=== PATIENT | male | born 1980 | race Caucasian/White ===

== ENCOUNTER 2018-07-20 08:28 | Emergency (ER) | payer OTHER ==
[2018-07-20 08:34] VITALS: RESP 18; TEMP 98.2
[2018-07-20] MEDS ORDERED: MORPHINE SULFATE 4 MG/ML SYRINGE IV STA (08:55)
[2018-07-20] MEDS ORDERED: ONDANSETRON 4 MG/2 ML VIAL IVP STA (08:55)
[2018-07-20] MEDS ORDERED: SODIUM CHLORIDE 0.9% 1,000 ML IV STA (08:55)
--- NOTE | 2018-07-20 09:01 | ED ---
General Adult HPI - General Chief complaint: Abdominal Pain Stated complaint: Infection in stomach Time Seen by Provider: 07/20/18 08:42 Source: patient, RN notes reviewed Mode of arrival: wheelchair Limitations: no limitations - History of Present Illness Initial comments: Patient's a 38-year-old male with no significant past medical history, presented to the emergency room today with a chief complaint of infection around the bellybutton. Patient states that he's had some pain in this area for the past 3 days. States went toPatient denies any recent fever, chills, shortness of breath, chest pain, back pain, abdominal pain, nausea or vomiting, numbness or tingling, dysuria or hematuria, constipation or diarrhea, headaches or visual changes, or any other complaints. urgent care and they told him it could be a hernia and to follow-up family physician today. Patient states that today pain was worse and over some drainage coming from the bellybutton. Patient does admit to pain worse with certain movements. Patient denies any other complaints or symptoms. Patient denies any recent fever, chills, shortness of breath, chest pain, back pain, numbness or tingling, dysuria or hematuria, constipation or diarrhea, headaches or visual changes, or any other complaints. - Related Data Previous Rx's Medication Instructions Recorded Mupirocin 2% Oint [Bactroban Oint] 1 applic TOPICAL TID #1 gm 07/20/18 Sulfamethox-Tmp 800-160Mg [Bactrim 1 tab PO Q12HR #20 tab 07/20/18 DS 800-160 mg] Allergies Allergy/AdvReac Type Severity Reaction Status Date / Time bismuth subsalicylate AdvReac Nausea & Verified 07/20/18 09:11 [From Pepto-Bismol] Vomiting Review of Systems ROS Statement: Those systems with pertinent positive or pertinent negative responses have been documented in the HPI. ROS Other: All systems not noted in ROS Statement are negative. Past Medical History Past Medical History: No Reported History History of Any Multi-Drug Resistant Organisms: None Reported Past Surgical History: Orthopedic Surgery Past Psychological History: Anxiety Smoking Status: Never smoker Past Alcohol Use History: None Reported Past Drug Use History: Marijuana General Exam - General Exam Comments Initial Comments: General: The patient is awake and alert, in no distress, and does not appear acutely ill. Eye: Pupils are equal, round and reactive to light. Extra-ocular movements are intact. No nystagmus. There is normal conjunctiva bilaterally. No signs of icterus. Ears, nose, mouth and throat: There are moist mucous membranes and no oral lesions. Neck: The neck is supple, there is no tenderness or JVD. Cardiovascular: There is a regular rate and rhythm. No murmur, rub or gallop is appreciated. Respiratory: Lungs are clear to auscultation, respirations are non-labored, breath sounds are equal. No wheezes, stridor, rales, or rhonchi. Gastrointestinal: Patient does have tenderness periumbilical. There is white drainage coming from belly button. Small red area down into the belly button measuring approximately half centimeter in size possible abscessed area. No rebound, guarding or CVA tenderness. Musculoskeletal: Normal ROM, no tenderness. Sensation intact. Strength 5/5. Pulses equal bilaterally 2+. Neurological: A&O x 3. CN II-XII intact, There are no obvious motor or sensory deficits. Coordination appears grossly intact. Speech is normal. Skin: Dominant patient's belly button there is a small red area approximately half size where there is some purulent drainage coming from. Psychiatric: Cooperative, appropriate mood & affect, normal judgment. Limitations: no limitations Course Vital Signs 07/20/18 08:30 Temperature 98.2 F Pulse Rate 85 Respiratory 18 Rate Blood Pressure 122/76 O2 Sat by Pulse 97 Oximetry Medical Decision Making - Medical Decision Making Patient's CT the abdomen and pelvis is negative for any acute abnormality. Does have drainage coming from the bellybutton. There is a small abscess visualized. Patient's labs reviewed unremarkable. Patient's her on antibiotics to emergency room. Advised follow-up family doctor next 2 days. - Lab Data Result diagrams: 07/20/18 09:01 07/20/18 09:01 Lab Results 07/20/18 07/20/18 07/20/18 Range/Units 09:01 09:01 09:01 WBC 6.9 (3.8-10.6) k/uL RBC 4.99 (4.30-5.90) m/uL Hgb 14.9 (13.0-17.5) gm/dL Hct 44.6 (39.0-53.0) % MCV 89.5 (80.0-100.0) fL MCH 29.9 (25.0-35.0) pg MCHC 33.4 (31.0-37.0) g/dL RDW 13.1 (11.5-15.5) % Plt Count 193 (150-450) k/uL Neutrophils % 67 % Lymphocytes % 23 % Monocytes % 6 % Eosinophils % 2 % Basophils % 0 % Neutrophils # 4.6 (1.3-7.7) k/uL Lymphocytes # 1.6 (1.0-4.8) k/uL Monocytes # 0.4 (0-1.0) k/uL Eosinophils # 0.2 (0-0.7) k/uL Basophils # 0.0 (0-0.2) k/uL Sodium 141 (137-145) mmol/L Potassium 4.6 (3.5-5.1) mmol/L Chloride 109 H (98-107) mmol/L Carbon Dioxide 25 (22-30) mmol/L Anion Gap 7 mmol/L BUN 11 (9-20) mg/dL Creatinine 0.95 (0.66-1.25) mg/dL Est GFR (CKD-EPI)AfAm >90 (>60 ml/min/1.73 sqM) Est GFR (CKD-EPI)NonAf >90 (>60 ml/min/1.73 sqM) Glucose 100 H (74-99) mg/dL Plasma Lactic Acid Romel 1.3 (0.7-2.0) mmol/L Calcium 10.6 H (8.4-10.2) mg/dL Total Bilirubin 0.5 (0.2-1.3) mg/dL AST 17 (17-59) U/L ALT 14 L (21-72) U/L Alkaline Phosphatase 51 (38-126) U/L Total Protein 7.1 (6.3-8.2) g/dL Albumin 4.2 (3.5-5.0) g/dL Disposition Clinical Impression: Abdominal wall abscess Disposition: HOME SELF-CARE Condition: Good Instructions: Abscess (ED) Additional Instructions: Please use medication as discussed. Please follow-up with family doctor in the next 2 days of symptoms have not improved. Please return to emergency room if the symptoms increase or worsen or for any other concerns. Prescriptions: Mupirocin 2% Oint [Bactroban Oint] 1 applic TOPICAL TID #1 gm Sulfamethox-Tmp 800-160Mg [Bactrim DS 800-160 mg] 1 tab PO Q12HR #20 tab Is patient prescribed a controlled substance at d/c from ED?: No Referrals: Florentin León MD [Primary Care Provider] - 1-2 days Time of Disposition: 10:43
[2018-07-20 09:37] LABS: Basophils % (A) 0 %; Eosinophils # (A) 0.2 k/uL (0-0.7); Eosinophils % (A) 2 %; HCT 44.6 % (39.0-53.0); HGB 14.9 gm/dL (13.0-17.5); Lymphocytes # (A) 1.6 k/uL (1.0-4.8); Lymphocytes % (A) 23 %; MCH 29.9 pg (25.0-35.0); MCHC 33.4 g/dL (31.0-37.0); MCV 89.5 fL (80.0-100.0); Mean Platelet Volume 6.4; Monocytes # (A) 0.4 k/uL (0-1.0); Monocytes % (A) 6 %; Neutrophils # (A) 4.6 k/uL (1.3-7.7); Neutrophils % (A) 67 %; Platelet Count 193 k/uL (150-450); RBC 4.99 m/uL (4.30-5.90); RDW 13.1 % (11.5-15.5); WBC 6.9 k/uL (3.8-10.6)
[2018-07-20 09:55] LABS: ALT 14 U/L (21-72); AST 17 U/L (17-59); Albumin 4.2 g/dL (3.5-5.0); Alkaline Phosphatase 51 U/L (38-126); Anion Gap 7 mmol/L; Blood Urea Nitrogen 11 mg/dL (9-20); Calcium 10.6 mg/dL (8.4-10.2); Carbon Dioxide 25 mmol/L (22-30); Chloride 109 mmol/L (98-107); Glucose 100 mg/dL (74-99); Potassium 4.6 mmol/L (3.5-5.1); Sodium 141 mmol/L (137-145); Total Bilirubin 0.5 mg/dL (0.2-1.3); Total Protein 7.1 g/dL (6.3-8.2)
--- NOTE | 2018-07-20 10:11 | CT ---
EXAMINATION TYPE: CT abdomen pelvis w con DATE OF EXAM: 07/20/2018 COMPARISON: none HISTORY: Stomach pains CT DLP: 1428.7 mGycm CONTRAST: CT scan of the abdomen and pelvis is performed without Oral Contrast and with IV Contrast, patient in jected with 100 mL of Isovue 300. FINDINGS: LUNG BASES-: No visible nodule. No infiltrate. LIVER/GB: No calcified gallstones. No space occupying hepatic lesion. Biliary tree is of normal ca liber. PANCREAS: No inflammation. No distinct mass. SPLEEN: No splenic enlargement. No lesion seen. ADRENALS: No nodule. No thickening. KIDNEYS/BLADDER: No hydronephrosis. No nephrolithiasis. No distinct renal mass. Urinary bladder g rossly unremarkable. BOWEL: Normal appendix. Normal bowel caliber. No inflammation. GENITAL ORGANS: No gross abnormality. LYMPH NODES: No greater than 1cm abdominal or pelvic lymph nodes are appreciated. AORTA: No significant abnormality. OSSEOUS STRUCTURES: No significant abnormality is seen. OTHER: No significant additional abnormality is seen. IMPRESSION: 1. No significant abnormality to account for the patient's symptoms.
[2018-07-20 11:22] VITALS: BP 92/57; PULSE 68
== END 2018-07-20 11:17 | disposition home or self-care (01) ==
LOC: EC 08:28
DX: L02.211 Cutaneous abscess of abdominal wall (principal); Z98.890 Other specified postprocedural states; Z88.8 Allergy status to other drugs, medicaments and biological substances
CPT/HCPCS: 36415; 80053; 83605; 85025; 87040; 87070; 87205; 74177; 99284; 96374; 96375; 96361; J2270; J2405; Q9967

== ENCOUNTER 2020-08-06 14:20 | Emergency (ER) | payer BC, OTHER ==
[2020-08-06 14:28] VITALS: BP 125/84; PULSE 89; RESP 118; TEMP 98.2
[2020-08-06] MEDS ORDERED: HYDROcodone/APAP 5-325MG 1 EACH TAB PO STA (14:38)
[2020-08-06] MEDS ORDERED: AMOXIC-POT CLAV 875MG STARTER PACK 2 TAB BTL PO STA (14:38)
[2020-08-06] MEDS ORDERED: DIPH,PERTUS(ACELL)TETVAC-LF 0.5 ML VIAL IM ONE (14:38)
[2020-08-06] MEDS ORDERED: LIDOCAINE 1% INJ 10MG/ML (20 ML MDV) SQ ONE (14:41)
--- NOTE | 2020-08-06 14:44 | ED ---
Animal Bite HPI - General Chief Complaint: Animal Bite Stated Complaint: Dog bite,L hand Time Seen by Provider: 08/06/20 14:31 Source: patient, RN notes reviewed, old records reviewed Mode of arrival: ambulatory Limitations: no limitations - History of Present Illness Initial Comments: Patient is 40-year-old male who presents emergency department today with treatment of a dog bite to the left hand. Patient reports that he was an argument with his and his dog starting between him and he pushed the dog which then reacted to bite his left hand. Patient reports that he has pain tenderness and swelling to the hand. He states that he is right-handed. Patient reports his tetanus shot is up-to-date. He reports that the dog's vaccines are rabies are up-to-date. Patient reports pain with range of motion of the fourth and fifth digits. - Related Data Previous Rx's Medication Instructions Recorded Mupirocin 2% Oint [Bactroban Oint] 1 applic TOPICAL TID #1 gm 07/20/18 Sulfamethox-Tmp 800-160Mg [Bactrim 1 tab PO Q12HR #20 tab 07/20/18 DS 800-160 mg] Amoxic-Pot Clav 875-125Mg 1 tab PO Q12HR #20 tablet 08/06/20 [Augmentin 875-125] Allergies Allergy/AdvReac Type Severity Reaction Status Date / Time bismuth subsalicylate AdvReac Nausea & Verified 08/06/20 14:24 [From Pepto-Bismol] Vomiting Review of Systems ROS Statement: Those systems with pertinent positive or pertinent negative responses have been documented in the HPI. ROS Other: All systems not noted in ROS Statement are negative. Past Medical History Past Medical History: No Reported History Additional Past Medical History / Comment(s): gastritis History of Any Multi-Drug Resistant Organisms: None Reported Past Surgical History: Orthopedic Surgery Past Psychological History: ADD/ADHD, Anxiety Smoking Status: Former smoker Past Alcohol Use History: None Reported Past Drug Use History: Marijuana General Exam - General Exam Comments Initial Comments: 40-year-old male. Alert and oriented 3 Limitations: no limitations General appearance: alert, in no apparent distress Head exam: Present: atraumatic, normocephalic, normal inspection Eye exam: Present: normal appearance, PERRL, EOMI. Absent: scleral icterus, conjunctival injection, periorbital swelling ENT exam: Present: normal exam, mucous membranes moist Neck exam: Present: normal inspection Respiratory exam: Present: normal lung sounds bilaterally. Absent: respiratory distress, wheezes, rales, rhonchi, stridor Cardiovascular Exam: Present: regular rate, normal rhythm, normal heart sounds. Absent: systolic murmur, diastolic murmur, rubs, gallop, clicks GI/Abdominal exam: Present: soft, normal bowel sounds. Absent: distended, tende rness, guarding, rebound, rigid Extremities exam: Present: normal inspection, full ROM, normal capillary refill, other (Patient has a irregular 6 cm flap laceration involving the left hyperthenar eminence puncture wound of the wrist. The). Absent: tenderness, pedal edema, joint swelling, calf tenderness Back exam: Present: normal inspection Neurological exam: Present: alert, oriented X3, CN II-XII intact Psychiatric exam: Present: normal affect, normal mood Skin exam: Present: warm, dry, intact, normal color. Absent: rash Course Vital Signs 08/06/20 14:24 Temperature 98.2 F Pulse Rate 89 Respiratory 118 H Rate Blood Pressure 125/84 O2 Sat by Pulse 100 Oximetry Procedures - Laceration Laceration #1 Size (cm): 8 Description: flap Depth: involves muscle layer Anesthetic Used: lidocaine 1% Anesthesia Technique: local infiltration Amount (mls): 10 Pre-repair: wound explored, irrigated extensively Type of Sutures: nylon Size of Sutures: 5-0 Number of Sutures: 12 Technique: simple, interrupted Patient Tolerated Procedure: well, no complications Medical Decision Making - Medical Decision Making 40-year-old male presents emergency department today for evaluation for a dog bite to the left hand. Patient reports that he was an argument his and the dog got between them and that his left hand. He has irregular laceration over the hyperthenar eminence. Flap laceration measuring 8 cm. X-ray of the hand shows no fracture but evidence of laceration forming. Patient is given updated T DAP and given Augmentin [place] for pain. Patient's laceration was thoroughly irrigated with sterile water and iodine. Patient had 12 sutures loosely approximating the wound. I discussed that a dog bite wound is high white highly likely to become infected and to be diligent about taking antibiotics and wound care. Discussed if he has any redness swelling or drainage to return to the ER for reevaluation. Patient is agreeable to treatment plan will comply. - Radiology Data Radiology results: report reviewed Laceration deformity. No foreign body. No fracture. Disposition Clinical Impression: Dog bite, hand Disposition: HOME SELF-CARE Condition: Good Instructions (If sedation given, give patient instructions): Animal Bite (ED) Additional Instructions: Please return to the emergency room in 8-10 days to have sutures removed. Please leave wound covered for the first 24-48 hours and then leave open to air after that time. Please use clean soap and water to clean the suture area to prevent scabbing over the top of your sutures. Please watch for any signs of infection which may include but not limited to increased pain, swelling, redness, fever or chills. Please return to the emergency room if any signs of infection do occur. Please return to the emergency room for any other concerns or complications. Prescriptions: Amoxic-Pot Clav 875-125Mg [Augmentin 875-125] 1 tab PO Q12HR #20 tablet Is patient prescribed a controlled substance at d/c from ED?: No Referrals: Florentin León MD [Primary Care Provider] - 1-2 days Time of Disposition: 15:53
--- NOTE | 2020-08-06 15:18 | XR ---
EXAMINATION TYPE: XR hand complete LT DATE OF EXAM: 08/06/2020 COMPARISON: NONE HISTORY: Laceration. Pain. Dog bite. TECHNIQUE: 3 views FINDINGS: IMPRESSION: There is laceration deformity at the medial aspect of the hand at the base of the fifth metacarpal. T here is metacarpals are intact. There are no erosions. There are no pathologic calcifications. There is no sign of a foreign body. IMPRESSION: Laceration deformity. No foreign body. No fracture.
[2020-08-06] MEDS ORDERED: LORazepam 2 MG/ML INJ IM STA (15:22)
[2020-08-06] MEDS ORDERED: ACET/COD 300 MG/30 MG STARTER PACK 6 TAB BTL PO STA (15:53)
[2020-08-06] MEDS ORDERED: BACITRACIN OINT 1 EACH PACKET TOPICAL ONE (15:53)
== END 2020-08-06 16:05 | disposition home or self-care (01) ==
LOC: EC 14:20
DX: S61.452A Open bite of left hand, initial encounter (principal); Z23 Encounter for immunization; Z87.891 Personal history of nicotine dependence; Z88.8 Allergy status to other drugs, medicaments and biological substances; W54.0XXA Bitten by dog, initial encounter; Y93.89 Activity, other specified
CPT/HCPCS: 73130; 90715; 99284; 96372; 90471; 12044; J2060; J2001

== ENCOUNTER → 2020-08-24 | Outpatient (CLI) | payer BC, OTHER ==
--- NOTE | 2020-08-29 12:19 | US ---
EXAMINATION TYPE: US abdomen complete DATE OF EXAM: 08/26/2020 COMPARISON: NONE CLINICAL HISTORY: R10.13 Epigastric pain. EXAM MEASUREMENTS: Liver Length: 18.0 cm, liver length may be under represented by measurement obtained Gallbladder Wall: .3 cm CBD: .4 cm Spleen: 13.7 cm Right Kidney: 10.7 x 4.0 x 5.0 cm Left Kidney: 11.7 x 4.7 x 5.2 cm Pancreas: Obscured by bowel gas Liver: Liver echotexture is somewhat coarse, there is no evident mass Gallbladder: Echogenic foci seen stone vs. polyp Evidence for sonographic Fraser's sign: No CBD: wnl Spleen: Upper limits Right Kidney: wnl Left Kidney: wnl Upper IVC: wnl Abd Aorta: wnl There is no ascites. IMPRESSION: Exam is limited. Splenomegaly. Gallstone versus possible polyp. Correlate for hepatic ning atosis. Possible hepatomegaly.
== END | disposition home or self-care (01) ==
LOC: RADUSWWP 08:37
PROVIDERS: ATTEND Family Medicine
DX: R16.1 Splenomegaly, not elsewhere classified (principal)
CPT/HCPCS: 76700

== ENCOUNTER 2021-09-04 15:45 | Emergency (ER) | payer BC, OTHER ==
[2021-09-04 16:11] VITALS: BP 162/89; PULSE 77; RESP 18; TEMP 98.9
--- NOTE | 2021-09-04 17:25 | ED ---
ENT HPI - General Chief complaint: ENT Stated complaint: Sore Throat Time Seen by Provider: 09/04/21 16:21 Source: patient Mode of arrival: ambulatory Limitations: no limitations - History of Present Illness Initial comments: This 41-year-old male presents to the emergency department with a sore throat 6 weeks. Patient states he was on vacation in [place] and swallowed a lot of water from the ocean and since then has had an intermittent sore/scratchy throat. Patient states he went to his primary care provider who provided him with azithromycin and steroids 1 week after returning from his trip. He states he returned to his primary care provider a week and a half ago and was prescribed cefdinir and steroids. He states he is here because he has anxiety and had a panic attack yesterday because he is nervous that he has throat cancer. Patient states he has an appointment with an ENT next Friday. Patient denies any shortness of breath, chest pain, trouble swallowing, fever, mucus production, or headache. - Related Data Previous Rx's Medication Instructions Recorded Mupirocin 2% Oint [Bactroban Oint] 1 applic TOPICAL TID #1 gm 07/20/18 Sulfamethox-Tmp 800-160Mg [Bactrim 1 tab PO Q12HR #20 tab 07/20/18 DS 800-160 mg] Amoxic-Pot Clav 875-125Mg 1 tab PO Q12HR #20 tablet 08/06/20 [Augmentin 875-125] Allergies Allergy/AdvReac Type Severity Reaction Status Date / Time bismuth subsalicylate AdvReac Nausea & Verified 09/04/21 16:11 [From Pepto-Bismol] Vomiting Review of Systems ROS Statement: Those systems with pertinent positive or pertinent negative responses have been documented in the HPI. ROS Other: All systems not noted in ROS Statement are negative. Past Medical History Past Medical History: No Reported History Additional Past Medical History / Comment(s): gastritis History of Any Multi-Drug Resistant Organisms: None Reported Past Surgical History: Cholecystectomy, Orthopedic Surgery Past Psychological History: ADD/ADHD, Anxiety Smoking Status: Former smoker Past Alcohol Use History: None Reported Past Drug Use History: Marijuana General Exam Limitations: no limitations General appearance: alert, in no apparent distress, anxious Head exam: Present: atraumatic, normocephalic, normal inspection Eye exam: Present: normal appearance, EOMI ENT exam: Present: mucous membranes moist, other (Visualized posterior oropharynx with slight erythema. Tonsils without exudates, lesions or abscess. ) Neck exam: Present: normal inspection, full ROM, other (No masses felt). Absent: tenderness, lymphadenopathy Respiratory exam: Present: normal lung sounds bilaterally. Absent: respiratory distress, wheezes, rales, rhonchi, stridor Cardiovascular Exam: Present: regular rate, normal rhythm, normal heart sounds. Absent: systolic murmur, diastolic murmur, rubs, gallop, clicks GI/Abdominal exam: Present: soft, normal bowel sounds. Absent: distended, tenderness, guarding, rebound, rigid Extremities exam: Present: normal inspection, full ROM Back exam: Present: normal inspection, full ROM Neurological exam: Present: alert, oriented X3, CN II-XII intact Psychiatric exam: Present: normal affect, normal mood, anxious Skin exam: Present: warm, dry, intact, normal color. Absent: rash Course Vital Signs 09/04/21 16:04 Temperature 98.9 F Pulse Rate 77 Respiratory 18 Rate Blood Pressure 162/89 O2 Sat by Pulse 99 Oximetry Medical Decision Making - Medical Decision Making This 41-year-old male presents to the emergency department with an intermittent sore/scratchy throat 6 weeks after swallowing water from the ocean in 6 weeks ago. Physical exam was unremarkable without any exudates, abscesses, or masses were visualized. Case discussed with Dr. Kaba. Patient has an appointment scheduled with ENT next Friday. Patient instructed to go to ENT appointment next week. Patient sent home in stable condition and agreed to plan. Strict return precautions given. Patient's home in stable condition Disposition Clinical Impression: Sore throat Disposition: HOME SELF-CARE Condition: Stable Instructions (If sedation given, give patient instructions): Pharyngitis (ED) Additional Instructions: Please return to the emergency department if any new or worsening symptoms occur. Follow-up with ENT at your appointment next Friday. Is patient prescribed a controlled substance at d/c from ED?: No Referrals: Florentin León MD [Primary Care Provider] - 1-2 days
== END 2021-09-04 17:34 | disposition home or self-care (01) ==
LOC: EC 15:45
DX: J02.9 Acute pharyngitis, unspecified (principal); F12.90 Cannabis use, unspecified, uncomplicated; Z87.891 Personal history of nicotine dependence
CPT/HCPCS: 99282